=== PATIENT | female | born 1995 ===

== ENCOUNTER 2019-09-07 10:17 | Inpatient (IN) ==
[2019-09-07] MEDS ORDERED: BUTORPHANOL 2 MG/ML VIAL IV PRN (10:31)
[2019-09-07] MEDS ORDERED: ONDANSETRON 4 MG/2 ML VIAL IV PRN ×2 (10:31→20:38)
[2019-09-07] MEDS ORDERED: MEPERIDINE 50 MG/1 ML VIAL IV PRN (10:31)
[2019-09-07] MEDS: LACTATED RINGERS 1,000 ML IV SCH ×3 (10:46→17:19)
[2019-09-07] MEDS ORDERED: LACTATED RINGERS 1,000 ML IV ONE (11:00)
[2019-09-07] MEDS ORDERED: OXYTOCIN/LR 20 UNIT/1,000 ML BAG IV SCH (11:00)
[2019-09-07] MEDS ORDERED: CITRIC ACID/SODIUM CITRATE 30 ML UDCUP PO ONE (11:00)
[2019-09-07] MEDS ORDERED: ePHEDrine 50 MG/ML VIAL IV PRN (11:00)
[2019-09-07] MEDS ORDERED: FAMOTIDINE 20 MG/2 ML VIAL IV ONE (11:00)
[2019-09-07] MEDS ORDERED: PROMETHAZINE 25 MG/1 ML VIAL IM ONE (11:01)
[2019-09-07] MEDS ORDERED: diphenhydrAMINE 50 MG/1 ML VIAL IV PRN ×2 (11:01)
[2019-09-07] MEDS ORDERED: NALOXONE 0.4 MG/ML VIAL IV PRN (11:01)
[2019-09-07] MEDS ORDERED: hydrOXYzine HCL 25 MG/1 ML VIAL IM PRN (11:01)
[2019-09-07 11:12] LABS: Basophils % 0.3 % (0.0-0.8); Eosinophils # 0.1 10*3/uL (0.0-0.87); Eosinophils % 1.3 % (0.00-10.9); Hematocrit 33.9 VOL% (35.7-47.0); Hemoglobin 10.6 GM/DL (12.0-16.0); Immature Granulocytes % 0.5 %; Immature Granulocytes Absolute 0.04 #; Lymphocytes % 26.8 % (21.3-54.2); Mean Corpuscular HGB Conc 31.3 GM/DL (32-36); Mean Corpuscular Volume 87.1 FL (87-102); Mean Platelet Volume 10.3 FL (9.6-12.0); Monocytes % 6.4 % (1.7-12.7); Neutrophils % 64.7 % (38.7-73.9); Platelet Count 345 T/CUMM (130-400); Red Blood Count 3.89 MC/CUMM (3.8-5.5); Red Cell Distribution Width 15.6 % (9.3-17.3); White Blood Count 7.5 T/CUMM (4-12)
[2019-09-07] MEDS ORDERED: AMPICILLIN INJ 2,000 MG in SODIUM CHLORIDE 0.9% 100 ML IV ONE (11:13)
[2019-09-07] MEDS ORDERED: SODIUM CHLORIDE 0.9% 0 ML IV ONE (11:15)
[2019-09-07] MEDS ORDERED: AMPICILLIN 2,000 MG VIAL ONE (11:15)
[2019-09-07] MEDS ORDERED: fentaNYL 2 MCG/ROPIV 0.2% EPID 100 ML EPIDURAL SCH (11:30)
[2019-09-07 11:41] LABS: Albumin 2.4 G/DL (3.4-5.0); Bilirubin,Total 0.5 MG/DL (0.2-1.0); Calcium 8.7 MG/DL (8.5-10.1); Osmolality,Calculated 268.1 MOS/KG (273-304); Total Protein 7.5 G/DL (6.4-8.3)
[2019-09-07 14:14] LABS: Apearance,Urine CLEAR (Clear); Bilirubin,Urine Negative (Negative); Blood, Urine Negative (Negative); Glucose,Urine (UA) Negative (Negative); Ketones,Urine Negative (Negative); Mucus,Urine Occasional /LPF (Occasional); Nitrite,Urine Negative (Negative); Protein,Urine Negative; Squamous Epithelial Cell,Urine Occasional /HPF (0-10); Urine Color Yellow (Yellow); Urine Specific Gravity 1.021 (1.001-1.035); Urine Urobilinogen < 2.0 EU/DL (0.2-1.0); WBC,Urine 1 /HPF (0-6)
[2019-09-07] MEDS: AMPICILLIN INJ 1,000 MG in SODIUM CHLORIDE 0.9% 100 ML IV SCH ×2 (15:30→19:40)
[2019-09-07] MEDS ORDERED: TRANEXAMIC ACID 1,000 MG/10 ML VIAL ONE (20:16)
[2019-09-07] MEDS ORDERED: METHYLERGONOVINE 0.2 MG/1 ML AMP ONE (20:16)
[2019-09-07] MEDS ORDERED: CARBOPROST TROMETHAMINE 250 MCG/ML AMP IM ONE (20:16)
[2019-09-07] MEDS ORDERED: miSOPROStoL 200 MCG TABLET ONE (20:16)
[2019-09-07] MEDS ORDERED: SODIUM CHLORIDE 0.9% 100 ML IV ONE (20:17)
[2019-09-07] MEDS ORDERED: ACETAMINOPHEN 325 MG TABLET PO PRN (20:38)
[2019-09-07] MEDS ORDERED: MEASLES/MUMPS/RUBELLA VACCINE 0.5 ML VIAL SUBCUT ONE (20:38)
[2019-09-07] MEDS ORDERED: BISACODYL 10 MG SUPP RECTAL PRN (20:38)
[2019-09-07] MEDS ORDERED: LANOLIN 50% CREAM 0.3 OZ TUBE TOP PRN (20:38)
[2019-09-07] MEDS ORDERED: WITCH HAZEL PADS 100/JAR TOP PRN (20:38)
[2019-09-07] MEDS ORDERED: OXYTOCIN/LR 20 UNIT/1,000 ML BAG IV ONE (20:38)
[2019-09-07] MEDS ORDERED: RHO(D) IMMUNE GLOBULIN 300 MCG SYRINGE IM ONE (20:38)
[2019-09-07] MEDS ORDERED: oxyCODONE/ACETAMINOPHEN 5-325 MG TABLET PO PRN ×2 (20:38)
[2019-09-07] MEDS ORDERED: HYDROCORTISONE 2.5% RECTAL CREAM 30 GM TUBE TOP PRN (20:38)
[2019-09-07] MEDS ORDERED: BENZOCAINE 20%/MENTHOL 0.5% SPRAY 56 GM CAN TOP PRN (20:38)
[2019-09-07] MEDS ORDERED: DIPH/TET/ACEL PERT BOOSTER VACCINE 0.5 ML VIAL IM ONE (20:38)
[2019-09-07 20:40] LABS: Cord Arterial Blood HCO3 21.1 MMOL/L
[2019-09-07 20:43] LABS: Cord Venous Blood HCO3 22.7 MMOL/L; Cord Venous Blood PCO2 38.5 MMHG; Cord Venous Blood PO2 35.6
[2019-09-07] MEDS: IBUPROFEN 800 MG TABLET PO PRN (23:36)
[2019-09-08 05:35] LABS: Basophils % 0.3 % (0.0-0.8); Eosinophils # 0.1 10*3/uL (0.0-0.87); Eosinophils % 1.2 % (0.00-10.9); Hematocrit 29.2 VOL% (35.7-47.0); Hemoglobin 9.6 GM/DL (12.0-16.0); Immature Granulocytes % 0.4 %; Immature Granulocytes Absolute 0.05 #; Lymphocytes # 2.8 10*3/uL (1.4-4.0); Mean Corpuscular HGB Conc 32.9 GM/DL (32-36); Mean Corpuscular Volume 85.4 FL (87-102); Mean Platelet Volume 10.6 FL (9.6-12.0); Monocytes % 7.6 % (1.7-12.7); Neutrophils % 67.5 % (38.7-73.9); Platelet Count 272 T/CUMM (130-400); Red Blood Count 3.42 MC/CUMM (3.8-5.5); Red Cell Distribution Width 15.4 % (9.3-17.3); White Blood Count 12.1 T/CUMM (4-12)
[2019-09-08] MEDS: DOCUSATE SODIUM 100 MG CAPSULE PO SCH ×2 (10:05→20:09)
[2019-09-08] MEDS: IBUPROFEN 800 MG TABLET PO PRN (15:30)
[2019-09-09 07:15] VITALS: BP 110/61
== END 2019-09-09 11:55 | disposition home or self-care (01) | DRG 560 ==
LOC: N.LDOUT 10:17 → N.LD 10:22 → N.OB 23:54
PROVIDERS: ADMIT Obstetrics & Gynecology; ATTEND Obstetrics & Gynecology